=== PATIENT | female | born 1965 | race Caucasian/White ===

== ENCOUNTER 2020-09-07 06:22 | Inpatient (IN) ==
[2020-09-07] MEDS ORDERED: ANCEF VIAL 1 GRAM IVP ONE (06:23)
[2020-09-07] MEDS ORDERED: D5 1/2 NS 1000 ML 1,000 ML IV SCH (06:23)
[2020-09-07] MEDS ORDERED: ANCEF 1 GRAM IV PREMIX* 1 G/50 ML BAG IV ONE (06:34)
[2020-09-07] MEDS ORDERED: ProvayBLUE 0.5% ONE (06:51)
[2020-09-07] MEDS ORDERED: BETADINE SOLN ONE (06:51)
[2020-09-07 07:03] VITALS: BMI 24.3
[2020-09-07] MEDS ORDERED: FENTANYL INJ 250 mcg ONE (07:17)
[2020-09-07] MEDS ORDERED: DILAUDID INJ ONE ×3 (07:17→10:34)
[2020-09-07] MEDS ORDERED: QUELICIN (OR ANECTINE) ONE (07:20)
[2020-09-07] MEDS ORDERED: NORCURON INJ 10 MG VIAL ONE (07:20)
[2020-09-07] MEDS ORDERED: VERSED ONE (07:20)
[2020-09-07] MEDS ORDERED: SUPRANE ONE ×2 (07:20→07:43)
[2020-09-07] MEDS ORDERED: DIPRIVAN VIAL ONE (07:20)
[2020-09-07] MEDS ORDERED: ZOFRAN INJ 4 MG VIAL ONE (07:20)
[2020-09-07] MEDS ORDERED: NEOSTIGMINE INJ ONE (07:20)
[2020-09-07] MEDS ORDERED: ROBINUL ONE (07:20)
[2020-09-07] MEDS ORDERED: LR 1000 ML IV 1,000 ML IV ONE (08:50)
[2020-09-07] MEDS ORDERED: ZOFRAN INJ 4 MG VIAL IVP PRN (09:39)
[2020-09-07] MEDS ORDERED: REGLAN INJ 10 MG VIAL IVP PRN (09:39)
[2020-09-07] MEDS ORDERED: PHENERGAN INJ 25 MG IM PRN (09:39)
[2020-09-07] MEDS ORDERED: BENADRYL INJ 50 MG VIAL IVP PRN ×2 (09:39→11:08)
[2020-09-07] MEDS: DILAUDID INJ IVP PRN ×4 (10:00→10:42)
[2020-09-07] MEDS: TORADOL 30 MG VIAL IVP PRN ×2 (11:11→15:31)
[2020-09-07] MEDS: D5 1/2 NS 1000 ML 1,000 ML IV SCH ×2 (11:38→19:55)
[2020-09-07] MEDS ORDERED: MORPHINE SULFATE INJ 2 MG INJ IVP ONE ×2 (11:47→12:02)
[2020-09-07] MEDS ORDERED: MORPHINE SULFATE INJ 2 MG INJ ONE ×2 (11:47→12:02)
[2020-09-07] MEDS: MORPHINE SULFATE PCA 30 MG IVP PRN ×2 (12:23→16:30)
[2020-09-08] MEDS: ZOFRAN INJ 4 MG VIAL IVP PRN ×4 (02:50→20:45)
[2020-09-08] MEDS: D5 1/2 NS 1000 ML 1,000 ML IV SCH ×3 (03:01→19:55)
[2020-09-08 06:18] LABS: BASOPHILS % (AUTO) 0.2 % (0.2-1.0); EOSINOPHILS % (AUTO) 0.3 % (0.9-2.9); HEMATOCRIT 31.7 % (36.0-47.0); HEMOGLOBIN 10.8 g/dL (12.0-16.0); LYMPHOCYTES # (AUTO) 1.2 X10^3/uL (1.3-2.9); LYMPHOCYTES % (AUTO) 13.2 % (21.0-51.0); MEAN CORPUSCULAR HEMOGLOBIN 30.7 pg (27.0-34.0); MEAN CORPUSCULAR VOLUME 90.3 fL (80.0-100.0); MEAN PLATELET VOLUME 8.7 fL (7.4-11.0); MONOCYTES # (AUTO) 0.8 x10^3/uL (0.3-0.8); NEUTROPHILS # (AUTO) 6.8 x10^3/uL (2.2-4.8); NEUTROPHILS % (AUTO) 77.3 % (42.0-75.0); PLATELET COUNT 152 X10^3/uL (150.0-450.0); RED BLOOD COUNT 3.51 X10^6/uL (3.5-5.4); WHITE BLOOD COUNT 8.8 X10^3/uL (3.6-10.0)
[2020-09-08 06:26] LABS: BLOOD UREA NITROGEN 7 mg/dL (7-18); CALCIUM 7.7 mg/dL (8.5-10.1); CARBON DIOXIDE 28.3 mmol/L (21-32); CHLORIDE 103 mmol/L (98-107); COR NA(FOR HYPERGLY) 137 mmol/L (136-145); CREATININE 0.71 mg/dL (0.55-1.02); SODIUM 136 mmol/L (136-145); eGFR NON BLACK RACES > 60 (>60)
[2020-09-08] MEDS ORDERED: MOTRIN TAB 800 MG PO PRN (07:41)
[2020-09-08] MEDS: COLACE CAP 100 MG PO SCH ×2 (09:34→20:30)
[2020-09-08] MEDS: PERCOCET TAB 5/325 MG PO PRN ×3 (09:35→20:15)
[2020-09-08] MEDS: BACTROBAN TOPICAL OINT TOP SCH ×2 (18:40→20:45)
[2020-09-09] MEDS: PERCOCET TAB 5/325 MG PO PRN ×2 (02:59→10:44)
[2020-09-09] MEDS: D5 1/2 NS 1000 ML 1,000 ML IV SCH (04:05)
[2020-09-09 08:21] VITALS: BP 139/58
[2020-09-09] MEDS: BACTROBAN TOPICAL OINT TOP SCH (08:23)
[2020-09-09] MEDS: COLACE CAP 100 MG PO SCH (08:23)
[2020-09-09] MEDS: ZOFRAN INJ 4 MG VIAL IVP PRN (08:34)
== END 2020-09-09 10:57 | disposition home or self-care (01) | DRG 743 ==
LOC: OBS 06:22 → MED/SURG 11:30
PROVIDERS: ADMIT Specialist; ATTEND Specialist
DX: N95.0 Postmenopausal bleeding; N80.9 Endometriosis, unspecified; R10.2 Pelvic and perineal pain